=== PATIENT | female | born 1985 | race Caucasian/White ===

== ENCOUNTER → 2019-07-06 | Outpatient (CLI) | payer OTHER | END | disposition home or self-care (01) | LOC: RADCTMAIN 16:22 | PROVIDERS: ATTEND Orthopaedic Surgery Orthopaedic Trauma | DX: Z53.9 Procedure and treatment not carried out, unspecified reason (principal) ==

== ENCOUNTER 2020-03-29 09:21 | Emergency (ER) | payer OTHER ==
--- NOTE | 2020-03-29 09:54 | ED ---
General Adult HPI - General Stated complaint: psych eval Time Seen by Provider: 03/29/20 09:28 Source: patient, police, RN notes reviewed Mode of arrival: ambulatory Limitations: no limitations - History of Present Illness Initial comments: This is a 35-year-old female presents emergency Department with police for psychiatric evaluation. Patient reportedly had an argument with mother at home she became combative throwing objects. She does admit to this. She states that she is over her anger. She does not that she does have some psychiatric history has been off her Prozac over the last couple days because she ran out. Patient denies any suicidal or homicidal ideation denies any current drug or alcohol use she states that she's been sober for 6 months. Denies any self-harm no physical complaints including chest pain, shortness breath, nausea, vomiting diarrhea constipation no fevers chills. - Related Data Allergies Allergy/AdvReac Type Severity Reaction Status Date / Time No Known Allergies Allergy Verified 03/29/20 09:30 Review of Systems ROS Statement: Those systems with pertinent positive or pertinent negative responses have been documented in the HPI. ROS Other: All systems not noted in ROS Statement are negative. Past Medical History Past Medical History: No Reported History History of Any Multi-Drug Resistant Organisms: None Reported Additional Past Surgical History / Comment(s): LEEP procedure Past Psychological History: ADD/ADHD, Depression, PTSD Smoking Status: Current every day smoker Past Alcohol Use History: None Reported Past Drug Use History: None Reported General Exam Limitations: no limitations General appearance: alert, in no apparent distress, anxious Head exam: Present: atraumatic, normocephalic, normal inspection Eye exam: Present: normal appearance, PERRL, EOMI. Absent: scleral icterus, conjunctival injection, periorbital swelling ENT exam: Present: normal exam, normal oropharynx, mucous membranes moist Neck exam: Present: normal inspection, full ROM. Absent: tenderness, meningismus, lymphadenopathy Respiratory exam: Present: normal lung sounds bilaterally. Absent: respiratory distress, wheezes, rales, rhonchi, stridor Cardiovascular Exam: Present: regular rate, normal rhythm, normal heart sounds. Absent: systolic murmur, diastolic murmur, rubs, gallop, clicks Neurological exam: Present: alert, oriented X3, CN II-XII intact Skin exam: Present: warm, dry, intact, normal color. Absent: rash Course Vital Signs 03/29/20 03/29/20 09:24 10:04 Temperature 98.8 F Pulse Rate 101 H Respiratory 20 20 Rate Blood Pressure 151/92 O2 Sat by Pulse 99 Oximetry Medical Decision Making - Medical Decision Making Patient was evaluated by EPS case discussed with psychiatrist recommends outpatient treatment, continuation her medications. Safety plan in place - Lab Data Lab Results 03/29/20 Range/Units 10:00 Urine Opiates Screen Detected H (NotDetected) Ur Oxycodone Screen Not Detected (NotDetected) Urine Methadone Screen Not Detected (NotDetected) Ur Propoxyphene Screen Not Detected (NotDetected) Ur Barbiturates Screen Not Detected (NotDetected) U Tricyclic Antidepress Not Detected (NotDetected) Ur Phencyclidine Scrn Not Detected (NotDetected) Ur Amphetamines Screen Not Detected (NotDetected) U Methamphetamines Scrn Not Detected (NotDetected) U Benzodiazepines Scrn Not Detected (NotDetected) Urine Cocaine Screen Not Detected (NotDetected) U Marijuana (THC) Screen Not Detected (NotDetected) Disposition Clinical Impression: Adjustment reaction Disposition: HOME SELF-CARE Condition: Stable Instructions (If sedation given, give patient instructions): Mood Disorders (ED ) Additional Instructions: Please return to the Emergency Department if symptoms worsen or any other concerns. Is patient prescribed a controlled substance at d/c from ED?: No Referrals: Deanna Huston MD [Primary Care Provider] - 1-2 days Time of Disposition: 11:30
[2020-03-29 10:38] LABS: Amphetamine Screen,Urine Not Detected (NotDetected); Barbiturate Screen,Urine Not Detected (NotDetected); Benzodiazepines Screen,Urine Not Detected (NotDetected); Cocaine Screen,Urine Not Detected (NotDetected); Methadone Screen, Urine Not Detected (NotDetected); Opiate Screen,Urine Detected (NotDetected); Oxycodone Screen, Urine Not Detected (NotDetected); Phencyclidine Screen,Urine Not Detected (NotDetected); Tricyclic Antidepressant,Urine Not Detected (NotDetected); Urn Cannabinoid Scrn Not Detected (NotDetected)
[2020-03-29 11:42] VITALS: BP 127/76; PULSE 65; RESP 18; TEMP 97.6
== END 2020-03-29 11:42 | disposition home or self-care (01) ==
LOC: EC 09:21
DX: F43.20 Adjustment disorder, unspecified (principal); F17.200 Nicotine dependence, unspecified, uncomplicated
CPT/HCPCS: 80306; 82075; 99284

== ENCOUNTER 2021-03-21 22:33 | Emergency (ER) | payer OTHER ==
[2021-03-21 22:42] VITALS: BP 154/61; PULSE 118; RESP 22; TEMP 98.2
--- NOTE | 2021-03-21 23:05 | ED ---
Psych HPI - General Chief Complaint: Psychiatric Symptoms Stated Complaint: Mental Health Time Seen by Provider: 03/21/21 22:50 Source: patient, police, RN notes reviewed, old records reviewed Mode of arrival: ambulatory Limitations: no limitations - History of Present Illness Initial Comments: This is a 36-year-old female to the ER for evaluation patient presents today for evaluation regards to psychiatric illness. Patient's brought in under petition by PD for psychiatric evaluation and management patient does have alcohol abuse and substance abuse issues. Patient states this hopeless. Angry. MD Complaint: feels depressed -: days(s) Associated Psychiatric Symptoms: depression, racing thoughts Quality: constant Improves With: none Worsens With: none Context: recent drug abuse, significant life stressor Associated Symptoms: denies other symptoms Treatments Prior to Arrival: placed on mental health hold If Self Harm: has acted on plan - Related Data Home Medications Medication Instructions Recorded Confirmed Acetaminophen [Tylenol] 1,000 mg PO Q4-6H PRN 03/21/21 03/21/21 Cetirizine HCl 10 mg PO DAILY PRN 03/21/21 03/21/21 Dextroamphetamine/Amphetamine 10 mg PO DAILY@1400 03/21/21 03/21/21 [Adderall] Dextroamphetamine/Amphetamine 20 mg PO DAILY@0900 03/21/21 03/21/21 [Adderall] FLUoxetine HCL 40 mg PO DAILY 03/21/21 03/21/21 Ibuprofen [Motrin Ib] 600 mg PO Q8H PRN 03/21/21 03/21/21 Vitamin B-12 1,000 Gummy 1,000 mg PO DAILY 03/21/21 03/21/21 Vitamin C 1,000mg Gummy 1,000 mg PO DAILY 03/21/21 03/21/21 diphenhydrAMINE [Benadryl] 25 mg PO DAILY PRN 03/21/21 03/21/21 Allergies Allergy/AdvReac Type Severity Reaction Status Date / Time No Known Allergies Allergy Verified 03/21/21 22:43 Review of Systems ROS Statement: Those systems with pertinent positive or pertinent negative responses have been documented in the HPI. ROS Other: All systems not noted in ROS Statement are negative. Past Medical History Past Medical History: No Reported History History of Any Multi-Drug Resistant Organisms: None Reported Additional Past Surgical History / Comment(s): LEEP procedure Past Psychological History: ADD/ADHD, Depression, PTSD Smoking Status: Current every day smoker Past Alcohol Use History: Abuse, Daily, Heavy Past Drug Use History: Methamphetamine General Exam Limitations: no limitations General appearance: alert, in no apparent distress Head exam: Present: atraumatic, normocephalic, normal inspection Eye exam: Present: normal appearance, PERRL, EOMI. Absent: scleral icterus, conjunctival injection, periorbital swelling ENT exam: Present: normal exam, mucous membranes moist Neck exam: Present: normal inspection. Absent: tenderness, meningismus, lymphadenopathy Respiratory exam: Present: normal lung sounds bilaterally. Absent: respiratory distress, wheezes, rales, rhonchi, stridor Cardiovascular Exam: Present: normal rhythm, tachycardia, normal heart sounds. Absent: systolic murmur, diastolic murmur, rubs, gallop, clicks GI/Abdominal exam: Present: soft, normal bowel sounds. Absent: distended, tenderness, guarding, rebound, rigid Extremities exam: Present: normal inspection, full ROM, normal capillary refill. Absent: tenderness, pedal edema, joint swelling, calf tenderness Back exam: Present: normal inspection Neurological exam: Present: alert, oriented X3, CN II-XII intact Psychiatric exam: Present: normal affect, normal mood Skin exam: Present: warm, dry, intact, normal color. Absent: rash Course Vital Signs 03/21/21 22:39 Temperature 98.2 F Pulse Rate 118 H Respiratory 22 Rate Blood Pressure 154/61 O2 Sat by Pulse 97 Oximetry - Reevaluation(s) Reevaluation #1: 03/21/21 23:29 Medical record is reviewed Medical Decision Making - Medical Decision Making 36 female for evaluation by psychiatry, patient deemed stable for discharge home Disposition Clinical Impression: Acute anxiety, Depression Disposition: HOME SELF-CARE Condition: Fair Instructions (If sedation given, give patient instructions): Depression (ED) Is patient prescribed a controlled substance at d/c from ED?: No Referrals: Deanna Huston MD [Primary Care Provider] - 1-2 days
[2021-03-22] MEDS ORDERED: ACETAMINOPHEN TAB 325 MG TAB PO STA (01:28)
== END 2021-03-22 04:57 | disposition home or self-care (01) ==
LOC: EC 22:33
DX: F32.9 Major depressive disorder, single episode, unspecified (principal); F41.9 Anxiety disorder, unspecified; F17.200 Nicotine dependence, unspecified, uncomplicated; F90.9 Attention-deficit hyperactivity disorder, unspecified type; Z79.899 Other long term (current) drug therapy
CPT/HCPCS: 82075; 99284

== ENCOUNTER 2021-06-10 16:49 | Inpatient (IN) | payer MEDICAID, OTHER ==
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
[2021-06-10 18:52] LABS: Amphetamine Screen,Urine Not Detected (NotDetected); Barbiturate Screen,Urine Not Detected (NotDetected); Benzodiazepines Screen,Urine Not Detected (NotDetected); Cocaine Screen,Urine Not Detected (NotDetected); Methadone Screen, Urine Not Detected (NotDetected); Opiate Screen,Urine Not Detected (NotDetected); Oxycodone Screen, Urine Not Detected (NotDetected); Phencyclidine Screen,Urine Not Detected (NotDetected); Tricyclic Antidepressant,Urine Detected (NotDetected); Urn Cannabinoid Scrn Not Detected (NotDetected)
[2021-06-10] MEDS ORDERED: LORazepam 1 MG TAB PO PRN (23:40)
[2021-06-10] MEDS ORDERED: MAGNESIUM HYDROXIDE 2,400 MG/10 ML CUP PO PRN (23:40)
[2021-06-10] MEDS ORDERED: ACETAMINOPHEN TAB 325 MG TAB PO PRN (23:40)
[2021-06-10] MEDS ORDERED: MAG HYDROX/AL HYDROX/SIMETH 30 ML CUP PO PRN (23:40)
[2021-06-10] MEDS ORDERED: LORazepam 2 MG/ML INJ IM PRN (23:43)
[2021-06-10] MEDS ORDERED: HALOPERIDOL LACTATE 5 MG/ML 1 ML VIAL IM PRN (23:43)
[2021-06-11 01:09] LABS: Appearance,Urine Clear (Clear); Bilirubin,Urine Negative (Negative); Blood,Urine Negative (Negative); Color,Urine Light Yellow; Glucose,Urine (UA) Negative (Negative); Ketones,Urine 1+ (Negative); Leukocyte Esterase,Urine Negative (Negative); Nitrite,Urine Negative (Negative); PH, Urine 8.5 (5.0-8.0); Protein,Urine Negative (Negative); Specific Gravity,Urine 1.018 (1.001-1.035); Urobilinogen,Urine <2.0 mg/dL (<2.0)
[2021-06-11] MEDS: NICOTINE 14MG/24HR PATCH TRANSDERM SCH ×3 (01:50→17:23)
--- NOTE | 2021-06-11 03:54 | P.PN ---
Progress Note - Text Progress Note Date: 06/11/21 Patient sedated and could not be evaluated.
[2021-06-11 07:28] LABS: Basophils # (A) 0.1 k/uL (0-0.2); Basophils % (A) 1 %; Eosinophils # (A) 0.3 k/uL (0-0.7); Eosinophils % (A) 3 %; HCT 46.2 % (34.0-46.0); HGB 15.8 gm/dL (11.4-16.0); Lymphocytes # (A) 3.1 k/uL (1.0-4.8); Lymphocytes % (A) 34 %; MCH 31.8 pg (25.0-35.0); MCHC 34.1 g/dL (31.0-37.0); MCV 93.2 fL (80.0-100.0); Mean Platelet Volume 6.5; Monocytes # (A) 0.6 k/uL (0-1.0); Monocytes % (A) 6 %; Neutrophils # (A) 5.1 k/uL (1.3-7.7); Neutrophils % (A) 55 %; Platelet Count 477 k/uL (150-450); RBC 4.96 m/uL (3.80-5.40); RDW 11.9 % (11.5-15.5); WBC 9.2 k/uL (3.8-10.6)
[2021-06-11 07:54] LABS: ALT 16 U/L (4-34); AST 32 U/L (14-36); African American GFR (CKD) >90 (>60 ml/min/1.73 sqM); Albumin 5.1 g/dL (3.5-5.0); Alkaline Phosphatase 73 U/L (38-126); Anion Gap 11 mmol/L; Blood Urea Nitrogen 16 mg/dL (7-17); Calcium 10.3 mg/dL (8.4-10.2); Carbon Dioxide 27 mmol/L (22-30); Chloride 100 mmol/L (98-107); Glucose 103 mg/dL (74-99); Non-African American GFR(CKD) >90 (>60 ml/min/1.73 sqM); Potassium 4.2 mmol/L (3.5-5.1); Sodium 138 mmol/L (137-145); Total Bilirubin 0.6 mg/dL (0.2-1.3); Total Protein 8.3 g/dL (6.3-8.2)
[2021-06-11] MEDS: LORATADINE 10 MG TAB PO SCH (08:05)
[2021-06-11] MEDS ORDERED: QUEtiapine 25 MG TAB PO SCH ×2 (09:00→21:00)
[2021-06-11] MEDS ORDERED: FLUoxetine HCL 20 MG CAP PO SCH (09:00)
[2021-06-11] MEDS ORDERED: IBUPROFEN 600 MG TAB PO PRN (11:46)
[2021-06-11] MEDS ORDERED: FLUoxetine HCL 20 MG CAP PO STA (11:51)
[2021-06-11] MEDS ORDERED: hydrOXYzine pamoate 25 MG CAP PO PRN (11:54)
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
[2021-06-11 15:44] LABS: Chol/HDL Ratio 5.32; Cholesterol 218 mg/dL (0-200); LDL Cholesterol,Calculated 124.6 mg/dL (0.0-131.0)
[2021-06-12] MEDS: NICOTINE 14MG/24HR PATCH TRANSDERM SCH ×2 (08:22→12:38)
[2021-06-12] MEDS: LORATADINE 10 MG TAB PO SCH (08:22)
[2021-06-12] MEDS: FLUoxetine HCL 20 MG CAP PO SCH (08:22)
[2021-06-12] MEDS ORDERED: QUEtiapine 25 MG TAB PO PRN (09:59)
--- NOTE | 2021-06-12 10:14 | P.PN ---
Progress Note - Text Progress Note Date: 06/12/21 Interval History: Patient was seen lying in her bed this morning and was directable and agreeable to speak with travel writer in the office. Patient was more directable today during conversation. She appeared to be more cooperative however had a fairly constricted affect. She states that she is doing better overall in terms of her anxiety and depression. She states that she is not feeling suicidal any longer. She claims that she spoke with her boyfriend over the phone yesterday however was vague about their conversation. She states that she has not conned many groups because "I don't know when they are". Marketing Technology Specialist spoke with patient about the different group options during the day and she states that she will be going to them today. States that her appetite is fair. She states that she was able to sleep fairly last night her feel somewhat tired this morning. She was agreeable to have her Seroquel changed to prn dosing at night time and was agreeable to try Remeron instead for sleep. At this time patient denies any suicidal or homical ideations, intent or plan. Patient denies any auditory, visual hallucinations and denies any paranoia or delusions. Patient denies any side effects from the medications and has been compliant with meds. Mental Status Exam: General Appearance: Patient appears to be short in stature, thin, stated age is alert, more directable today. Patient appears to have improving hygiene and grooming. Behavior: Patient is seated without any agitated behavior. Withdrawn, improving midly Speech: Patient's speech is fluent and nonpressured. Mood/Affect: Patient reports their mood is improving mildly, affect is congruent and constricted. Suicidality/Homicidality: Patient denies having any homicidal ideation intent or plan. Denies any suicidal ideations intent or plan Perceptions: Patient denies any visual hallucinations and denies any auditory h allucinations Though content/process: There is no evidence of any delusional thought content and thought process is linear and goal-directed. Memory and concentration: AOX3, grossly intact for the purposes of this session. Judgment and insight: improving mildly Assessment Major depressive disorder, without psychotic features Anxiety disorder unspecified Alcohol abuse Nicotine dependence Plan: -Patient continues to meet criteria for inpatient psychiatric admission for symptom stabilization and safety. Patient has signed adult voluntary form and medication consent and was placed in patient's chart. -Medications: Continue Prozac 60 mg daily for mood/anxiety. Changed Seroquel to 25 mg daily at bedtime prn for insomnia. Added Remeron 15 mg daily at bedtime for insomnia/mood. Vistaril 25 mg every 6 hours when necessary for anxiety. -CIWA protocol with Ativan PRN for ETOH withdrawal -When necessary Ativan and Haldol for agitation/aggression. -NRT - nicotine patch -SW on board for discharge planning. Encouraged the patient to participate in milieu. ax survey worker to reach out to patient's friend who she wants to stay with Randall at [phone] to arrange for possible d/c planning for tomorrow. She is refusing rehab at this time.
[2021-06-12] MEDS ORDERED: MIRTAZAPINE 15 MG TAB PO SCH (21:00)
--- NOTE | 2021-06-13 00:37 | P.MDCNMH ---
History of Present Illness H&P Date: 06/12/21 Chief Complaint: depression and suicidal ideation 36-year-old female with depression Patient comes in due to depression and suicidal ideation she was petitioned for psych eval here in the hospital Patient currently denies any medical concerns she denies any fevers or chills denies any upper respiratory infection symptoms denies any nausea vomiting abdominal pain She does admit smoking but denies any drug abuse or alcohol abuse She currently denies hearing any voices or any other hallucinations he denies any suicidal ideation Review of Systems Pertinent positives as noted in HPI. All other systems were reviewed and are negative Past Medical History Past Medical History: No Reported History History of Any Multi-Drug Resistant Organisms: None Reported Additional Past Surgical History / Comment(s): LEEP procedure Past Psychological History: ADD/ADHD, Depression, PTSD Smoking Status: Current every day smoker Past Alcohol Use History: Abuse, Daily, Heavy Past Drug Use History: Methamphetamine - Past Family History Family Family Medical History: No Reported History Medications and Allergies Home Medications Medication Instructions Recorded Confirmed Type Cetirizine HCl 10 mg PO DAILY 03/21/21 06/11/21 History Dextroamphetamine/Amphetamine 10 mg PO DAILY@1400 03/21/21 06/11/21 History [Adderall] Dextroamphetamine/Amphetamine 20 mg PO DAILY@0900 03/21/21 06/11/21 History [Adderall] FLUoxetine HCL 40 mg PO DAILY 03/21/21 06/11/21 History QUEtiapine FUMARATE [SEROquel XR] 50 mg PO HS 06/10/21 06/11/21 History Allergies Allergy/AdvReac Type Severity Reaction Status Date / Time No Known Allergies Allergy Verified 06/11/21 00:52 Physical Exam Constitutional: No acute distress, conversant, pleasant Eyes: Anicteric sclerae, moist conjunctiva, Pupils equal round reactive to light ENMT: NC/AT Oropharynx clear, no erythema, or exudates Neck: Supple, FROM, no masses, or JVD No carotid bruits No thyromegaly Lungs: Clear to auscultation Clear to percussion Normal respiratory effort, no accessory muscle use Cardiovascular: Heart regular in rate and rhythm, No murmurs, gallops, or rubs No peripheral edema Abdominal: Soft Nontender, no guarding, rebound or rigidity Abdomen moving with respiration Normoactive bowel sounds No hepatomegaly, No splenomegaly No palpable mass No abdominal wall hernia noted Skin: Normal temperature, tone, texture, turgor No induration No subcutaneous nodules No rash, lesions No ulcers Extremities: No digital cyanosis No clubbing Pedal pulses intact and symmetrical Radial pulses intact and symmetrical No calf tenderness Psychiatric: Alert and oriented to person, place and time Appropriate affect fair judgement Neuro Muscles Strength 5/5 in all 4 extremities Sensation to light touch grossly present throughout Cranial nerves II-XII grossly intact No focal sensory deficits Lymphatics: no palpable cervical or supraclavicular , or inguinal lymph nodes Cranial Nerve Examination - Cranial Nerves Cranial Nerve II- Optic: Intact Cranial Nerve III- Oculomotor: Intact Cranial Nerve IV- Trochlear: Intact Cranial Nerve V- Trigeminal: Intact Cranial Nerve - Abducens: Intact Cranial Nerve VII- Facial: Intact Cranial Nerve VIII- Auditory: Intact Cranial Nerve IX- Glossopharyngeal: Intact Cranial Nerve X- Vagus: Intact Cranial Nerve XI- Accessory: Intact Cranial Nerve XII- Hypoglossal: Intact Results CBC & Chem 7: 06/11/21 06:54 06/11/21 06:54 Assessment and Plan Assessment: Depression and suicidal ideation Management per psych Tobacco smoking Nicotine replacement therapy offered Patient counseled to quit smoking Thank you for allowing us to participate in the care of this patient. We will follow peripherally. Do not hesitate to contact us with questions. Someone can be reached from the [facility] hospitalist group at all hours of the day at [phone].
[2021-06-13 06:50] VITALS: BP 121/85; PULSE 69; RESP 14; TEMP 97.4
[2021-06-13] MEDS: FLUoxetine HCL 20 MG CAP PO SCH (08:17)
[2021-06-13] MEDS: NICOTINE 14MG/24HR PATCH TRANSDERM SCH (08:17)
[2021-06-13] MEDS: LORATADINE 10 MG TAB PO SCH (08:17)
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
[2021-06-14 04:35] LABS: Hemoglobin A1C 5.5 % (4.0-6.0)
== END 2021-06-13 14:05 | disposition home or self-care (01) | DRG 918 ==
LOC: EC 16:49 → 3MHU 23:08
PROVIDERS: ADMIT Psychiatry & Neurology Psychiatry; ATTEND Psychiatry & Neurology Psychiatry
PROC: HZ2ZZZZ Detoxification Services for Substance Abuse Treatment (ICD-10-PCS; principal; 2021-06-10)
DX: T43.222A Poisoning by selective serotonin reuptake inhibitors, intentional self-harm, initial encounter (principal); R45.851 Suicidal ideations; F19.20 Other psychoactive substance dependence, uncomplicated; F15.20 Other stimulant dependence, uncomplicated; F10.10 Alcohol abuse, uncomplicated; F32.9 Major depressive disorder, single episode, unspecified; F12.20 Cannabis dependence, uncomplicated; F17.210 Nicotine dependence, cigarettes, uncomplicated; F43.10 Post-traumatic stress disorder, unspecified; G47.00 Insomnia, unspecified; F90.9 Attention-deficit hyperactivity disorder, unspecified type; Z71.6 Tobacco abuse counseling; Z79.899 Other long term (current) drug therapy; X58.XXXA Exposure to other specified factors, initial encounter; Z71.51 Drug abuse counseling and surveillance of drug abuser
CPT/HCPCS: 80053; 80061; 80306; 81003; 81025; 82075; 83036; 84443; 85025; 99285

== ENCOUNTER 2021-06-28 21:49 | Inpatient (IN) | payer MEDICAID, OTHER ==
[2021-06-28] MEDS ORDERED: NICOTINE 14MG/24HR PATCH TRANSDERM STA (22:04)
--- NOTE | 2021-06-28 22:07 | ED ---
Psych HPI - General Chief Complaint: Psychiatric Symptoms Stated Complaint: Mental Health Time Seen by Provider: 06/28/21 21:55 Source: patient Mode of arrival: ambulatory - History of Present Illness MD Complaint: feels depressed -: days(s) Associated Psychiatric Symptoms: depression, suicidal ideation History of same: Yes Quality: getting worse Improves With: none Worsens With: none Associated Symptoms: denies other symptoms - Related Data Home Medications Medication Instructions Recorded Confirmed Cetirizine HCl 10 mg PO DAILY 03/21/21 06/11/21 Dextroamphetamine/Amphetamine 10 mg PO DAILY@1400 03/21/21 06/11/21 [Adderall] Dextroamphetamine/Amphetamine 20 mg PO DAILY@0900 03/21/21 06/11/21 [Adderall] Previous Rx's Medication Instructions Recorded Acetaminophen Tab [Tylenol] 650 mg PO Q4HR PRN tab 06/13/21 FLUoxetine HCL [PROzac] 60 mg PO DAILY 30 Days cap 06/13/21 Ibuprofen [Motrin] 600 mg PO Q8H PRN tab 06/13/21 Mirtazapine [Remeron] 15 mg PO HS 30 Days tab 06/13/21 Nicotine 14Mg/24Hr Patch [Habitrol] 1 patch TRANSDERM DAILY 14 Days 06/13/21 patch QUEtiapine [SEROquel] 25 mg PO HS PRN 30 Days tab 06/13/21 Allergies Allergy/AdvReac Type Severity Reaction Status Date / Time No Known Allergies Allergy Verified 06/28/21 21:52 Review of Systems ROS Statement: Those systems with pertinent positive or pertinent negative responses have been documented in the HPI. ROS Other: All systems not noted in ROS Statement are negative. Constitutional: Denies: fever, chills Respiratory: Denies: cough, dyspnea Cardiovascular: Denies: chest pain, palpitations Gastrointestinal: Denies: abdominal pain, vomiting, diarrhea Musculoskeletal: Denies: back pain Skin: Denies: rash Neurological: Denies: headache Psychiatric: Reports: depression, suicidal thoughts. Denies: auditory hallucinations, visual hallucinations, homicidal thoughts Past Medical History Past Medical History: No Reported History History of Any Multi-Drug Resistant Organisms: None Reported Additional Past Surgical History / Comment(s): LEEP procedure Past Psychological History: ADD/ADHD, Depression, PTSD Smoking Status: Current every day smoker Past Alcohol Use History: Abuse, Daily, Heavy Past Drug Use History: Methamphetamine - Past Family History Family Family Medical History: No Reported History General Exam Limitations: no limitations General appearance: alert, in no apparent distress Head exam: Present: atraumatic, normocephalic Eye exam: Present: normal appearance. Absent: scleral icterus, conjunctival injection Respiratory exam: Present: normal lung sounds bilaterally. Absent: respiratory distress, wheezes, rales, rhonchi, stridor Cardiovascular Exam: Present: regular rate, normal rhythm, normal heart sounds. Absent: systolic murmur, diastolic murmur, rubs, gallop Extremities exam: Present: normal inspection, normal capillary refill. Absent: pedal edema, calf tenderness Neurological exam: Present: alert Psychiatric exam: Present: depressed. Absent: agitated, anxious, flat affect, manic, homicidal ideation, suicidal ideation Skin exam: Present: warm, dry, intact, normal color. Absent: rash Course Vital Signs 06/28/21 21:50 Temperature 98.2 F Pulse Rate 90 Respiratory 18 Rate Blood Pressure 145/73 O2 Sat by Pulse 98 Oximetry Medical Decision Making - Lab Data Lab Results 06/28/21 06/28/21 Range/Units 23:22 23:24 Urine Color Yellow Urine Appearance Cloudy H (Clear) Urine pH 6.0 (5.0-8.0) Ur Specific [place] 1.038 H (1.001-1.035) Urine Protein Trace H (Negative) Urine Glucose (UA) Negative (Negative) Urine Ketones 1+ H (Negative) Urine Blood Negative (Negative) Urine Nitrite Negative (Negative) Urine Bilirubin Negative (Negative) Urine Urobilinogen 4.0 (<2.0) mg/dL Ur Leukocyte Esterase Small H (Negative) Urine RBC 1 (0-5) /hpf Urine WBC 5 (0-5) /hpf Ur Squamous Epith Cells 5 H (0-4) /hpf Calcium Oxalate Crystal Many H (None) /hpf Urine Bacteria Rare H (None) /hpf Urine Mucus Few H (None) /hpf Urine HCG, Qual Not Detected (Not Detectd) Urine Opiates Screen Detected H (NotDetected) Ur Oxycodone Screen Detected H (NotDetected) Urine Methadone Screen Not Detected (NotDetected) Ur Propoxyphene Screen Not Detected (NotDetected) Ur Barbiturates Screen Not Detected (NotDetected) U Tricyclic Antidepress Not Detected (NotDetected) Ur Phencyclidine Scrn Not Detected (NotDetected) Ur Amphetamines Screen Detected H (NotDetected) U Methamphetamines Scrn Not Detected (NotDetected) U Benzodiazepines Scrn Detected H (NotDetected) Urine Cocaine Screen Not Detected (NotDetected) U Marijuana (THC) Screen Not Detected (NotDetected) Disposition Clinical Impression: Mood disorder Disposition: ADMITTED IP TO THIS [facility] Condition: Fair Is patient prescribed a controlled substance at d/c from ED?: No
[2021-06-29 00:10] LABS: Appearance,Urine Cloudy (Clear); Bacteria,Urine Rare /hpf; Bilirubin,Urine Negative (Negative); Blood,Urine Negative (Negative); Calcium Oxalate Crystals,Urine Many /hpf; Color,Urine Yellow; Glucose,Urine (UA) Negative (Negative); Ketones,Urine 1+ (Negative); Leukocyte Esterase,Urine Small (Negative); Mucus,Urine Few /hpf; Nitrite,Urine Negative (Negative); Protein,Urine Trace (Negative); RBC,Urine 1 /hpf (0-5); Specific Gravity,Urine 1.038 (1.001-1.035); Squamous Epithelial Cell,Urine 5 /hpf (0-4); WBC,Urine 5 /hpf (0-5)
[2021-06-29 00:11] LABS: Amphetamine Screen,Urine Detected (NotDetected); Barbiturate Screen,Urine Not Detected (NotDetected); Benzodiazepines Screen,Urine Detected (NotDetected); Cocaine Screen,Urine Not Detected (NotDetected); Methadone Screen, Urine Not Detected (NotDetected); Opiate Screen,Urine Detected (NotDetected); Oxycodone Screen, Urine Detected (NotDetected); Phencyclidine Screen,Urine Not Detected (NotDetected); Tricyclic Antidepressant,Urine Not Detected (NotDetected); Urn Cannabinoid Scrn Not Detected (NotDetected)
[2021-06-29] MEDS ORDERED: MAGNESIUM HYDROXIDE 2,400 MG/10 ML CUP PO PRN (02:26)
[2021-06-29] MEDS ORDERED: ACETAMINOPHEN TAB 325 MG TAB PO PRN (02:26)
[2021-06-29] MEDS ORDERED: MAG HYDROX/AL HYDROX/SIMETH 30 ML CUP PO PRN (02:26)
[2021-06-29] MEDS ORDERED: LORazepam 2 MG/ML INJ IM PRN (02:31)
[2021-06-29] MEDS ORDERED: haloperidoL 5 MG TAB PO PRN (02:32)
[2021-06-29] MEDS ORDERED: HALOPERIDOL LACTATE 5 MG/ML 1 ML VIAL IM PRN (02:32)
[2021-06-29 08:09] LABS: Basophils # (A) 0.1 k/uL (0-0.2); Basophils % (A) 1 %; Eosinophils # (A) 0.4 k/uL (0-0.7); Eosinophils % (A) 3 %; HCT 39.9 % (34.0-46.0); HGB 13.5 gm/dL (11.4-16.0); Lymphocytes # (A) 3.2 k/uL (1.0-4.8); Lymphocytes % (A) 31 %; MCH 33.3 pg (25.0-35.0); MCHC 33.8 g/dL (31.0-37.0); Mean Platelet Volume 6.4; Monocytes # (A) 0.4 k/uL (0-1.0); Monocytes % (A) 4 %; Neutrophils # (A) 6.1 k/uL (1.3-7.7); Neutrophils % (A) 59 %; Platelet Count 430 k/uL (150-450); RBC 4.05 m/uL (3.80-5.40); RDW 13.6 % (11.5-15.5); WBC 10.3 k/uL (3.8-10.6)
[2021-06-29 08:11] LABS: MCV 98.5 fL (80.0-100.0)
[2021-06-29 08:12] LABS: ALT 10 U/L (4-34); AST 22 U/L (14-36); African American GFR (CKD) >90 (>60 ml/min/1.73 sqM); Albumin 3.5 g/dL (3.5-5.0); Alkaline Phosphatase 66 U/L (38-126); Anion Gap 5 mmol/L; Blood Urea Nitrogen 16 mg/dL (7-17); Calcium 8.9 mg/dL (8.4-10.2); Carbon Dioxide 28 mmol/L (22-30); Chloride 104 mmol/L (98-107); Glucose 92 mg/dL (74-99); Non-African American GFR(CKD) >90 (>60 ml/min/1.73 sqM); Potassium 4.5 mmol/L (3.5-5.1); Sodium 137 mmol/L (137-145); Total Bilirubin <0.1 mg/dL (0.2-1.3); Total Protein 6.1 g/dL (6.3-8.2)
[2021-06-29] MEDS: NICOTINE 14MG/24HR PATCH TRANSDERM SCH (08:36)
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
[2021-06-29] MEDS: FLUoxetine HCL 20 MG CAP PO SCH (12:19)
[2021-06-29 14:16] LABS: Hemoglobin A1C 5.5 % (4.0-6.0)
[2021-06-29] MEDS: LORazepam 1 MG TAB PO PRN (19:49)
[2021-06-29] MEDS: MIRTAZAPINE 15 MG TAB PO SCH (20:38)
--- NOTE | 2021-06-30 01:25 | P.CONS ---
History of Present Illness - Reason for Consult Consult date: 06/30/21 - History of Present Illness The patient was seen with the mental health unit RN Amna. I was never alone with the patient. Patient is a 36-year-old female with a PMH of tobacco abuse who presented to the emergency room with complaints of depression and suicidal ideation. The patient was admitted to the mental health unit where she was seen and evaluated. The patient notes that she does not wish to talk about the exact reasons as to why she came into the emergency room. She however denied any physical complaints. She denied chest discomfort, shortness of breath, fever, chills, cough, nausea, vomiting. Patient reports smoking 1 pack of cigarettes daily for the past several years and is hoping to quit and is currently using a nicotine patch. She denied substance or alcohol use. Review of systems: Pertinent positives and negatives as discussed in HPI, a complete review of systems was performed and all other systems are negative. Physical examination: General: non toxic, no distress, appears at stated age, normal weight Derm: no unusual rashes/lesions no unusual ecchymoses, warm, dry Head: atraumatic, normocephalic, symmetric Eyes: EOMI, no lid lag, anicteric sclera, pupils equal round reactive to light ENT: Nose and ears atraumatic, no thrush, no pharyngeal erythema Neck: No thyromegaly, no cervical lymphadenopathy, trachea midline, supple Mouth: no lip lesion, mucus membranes moist Cardiovascular: S1S2 reg, no murmur, positive posterior tibial pulse bilateral, no edema, capillary refill less than 2 seconds Lungs: CTA bilateral, no rhonchi, no rales , no accessory muscle use Abdominal: soft, nontender to palpation, no guarding, no appreciable organomegaly, normal bowel sounds Ext: no gross muscle atrophy, muscle strength 5 out of 5 in all 4 extremities grossly, no contractures, Neuro: CN II-XI grossly intact, light touch intact all 4 extremities, finger to nose within normal limits, Psych: Alert, oriented, guarded affect Assessment/plan Tobacco abuse -Nicotine patch as needed Depression and suicidal ideation -As per psychiatry Thank you for allowing us to participate in the care of this patient. We will follow peripherally. Do not hesitate to contact us with questions. Someone can be reached from the [facility] hospitalist group at all hours of the day a t [phone]. Past Medical History Past Medical History: No Reported History History of Any Multi-Drug Resistant Organisms: None Reported Additional Past Surgical History / Comment(s): LEEP procedure Smoking Status: Current every day smoker - Past Family History Family Family Medical History: No Reported History Mother Family Medical History: Cancer Medications and Allergies Home Medications Medication Instructions Recorded Confirmed Type Cetirizine HCl 10 mg PO DAILY 03/21/21 06/29/21 History Dextroamphetamine/Amphetamine 10 mg PO DAILY@1400 03/21/21 06/29/21 History [Adderall] Dextroamphetamine/Amphetamine 20 mg PO DAILY@0900 03/21/21 06/29/21 History [Adderall] Acetaminophen Tab [Tylenol] 650 mg PO Q4HR PRN tab 06/13/21 06/29/21 Rx FLUoxetine HCL [PROzac] 60 mg PO DAILY 30 Days cap 06/13/21 06/29/21 Rx Ibuprofen [Motrin] 600 mg PO Q8H PRN tab 06/13/21 06/29/21 Rx Mirtazapine [Remeron] 15 mg PO HS 30 Days tab 06/13/21 06/29/21 Rx Nicotine 14Mg/24Hr Patch [Habitrol] 1 patch TRANSDERM DAILY 14 Days 06/13/21 06/29/21 Rx patch QUEtiapine [SEROquel] 25 mg PO HS PRN 30 Days tab 06/13/21 06/29/21 Rx Allergies Allergy/AdvReac Type Severity Reaction Status Date / Time No Known Allergies Allergy Verified 06/29/21 03:03 Physical Exam Vitals: Vital Signs Temp Pulse Resp BP 06/29/21 01:31 97.7 F 79 15 132/81 Results CBC & Chem 7: 06/29/21 07:13 06/29/21 07:13 Labs: Abnormal Lab Results - Last 24 Hours (Table) 06/29/21 Range/Units 07:13 Creatinine 0.49 L (0.52-1.04) mg/dL Total Bilirubin <0.1 L (0.2-1.3) mg/dL Total Protein 6.1 L (6.3-8.2) g/dL
[2021-06-30 07:05] VITALS: TEMP 97.5
[2021-06-30] MEDS: NICOTINE 14MG/24HR PATCH TRANSDERM SCH (08:23)
[2021-06-30] MEDS: FLUoxetine HCL 20 MG CAP PO SCH (08:23)
[2021-06-30] MEDS ORDERED: QUEtiapine 25 MG TAB PO PRN (10:21)
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
[2021-06-30] MEDS: LORazepam 1 MG TAB PO PRN ×2 (10:49→18:08)
[2021-06-30] MEDS: MIRTAZAPINE 15 MG TAB PO SCH (20:40)
[2021-07-01 07:01] VITALS: BP 141/84; PULSE 64; RESP 18
[2021-07-01] MEDS: NICOTINE 14MG/24HR PATCH TRANSDERM SCH (07:50)
[2021-07-01] MEDS: FLUoxetine HCL 20 MG CAP PO SCH (07:51)
[2021-07-01] MEDS: LORazepam 1 MG TAB PO PRN (08:22)
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
--- NOTE | 2021-07-01 10:29 | P.DS ---
Providers Date of admission: 06/29/21 01:12 Expected date of discharge: 07/01/21 Attending physician: Brandon Lou MD Consults: 06/29/21 02:26 Consult Physician Routine Consulting Provider: Mart Wynne Consult Reason/Comments: For H & P for Medical Follow Up Do you want consulting provider notified?: Yes Primary care physician: Denana Huston MD - Discharge Diagnosis(es) (1) Major depressive disorder, recurrent severe without psychotic features Current Visit: Yes Status: Acute Priority: High (2) Anxiety disorder, unspecified Current Visit: Yes Status: Acute Priority: Medium (3) Alcohol use disorder Current Visit: Yes Status: Acute Priority: Medium (4) Opioid abuse Current Visit: Yes Status: Acute Priority: Medium (5) Nicotine dependence Current Visit: Yes Status: Acute Priority: Low Hospital Course: Admission HPI: Admission note was completed by Dr. Beckwith "Patient is a 36-year-old single female. She is the mother of 2 children that are being cared for by their father. She says she has a GED and currently she is unemployed. Patient presented to the hospital with suicidal ideations. She was admitted on a voluntary basis due to having suicidal ideations without a plan. It should be noted the patient was here in this facility from 06/10/2021 to 06/13/2021. That admission precipitated by worsening depression with suicidal ideations. The patient was diagnosed with major depressive disorder, anxiety disorder and alcohol use disorder she was discharged on Prozac 60 mg daily, Remeron 15 mg nightly and Seroquel 25 mg as needed. Patient states that she kept her appointment with her therapist after she was discharged. She states her family physician kept her on the same medications. Patient states after she was discharged from the hospital she stayed with a male friend. She states on she decided to leave and stayed at a motel because she felt her friend was taken advantage of her. Patient said she forgot to take her medications with her ( Prozac, Remeron and seroquel). Patient states on 06/26/2021 she had 1 pint of alcohol. Patient states yesterday she told her fianc she began to feel depressed and was having thoughts of suicide. She states she and her fianc thought it would be better if she would come back to this hospital. Should be noted her urine drug screen was positive for opiates, oxycodone, methamphetamines and benzodiazepines. Patient states that she was prescribed Adderall for having ADHD. Patient states she had alcohol only 1 time after she left this hospital. She states she has had multiple suicide attempts in the past by taking an overdose or cutting self. Patient denies any auditory or visual hallucinations. Patient denies any flight of ideas racing thoughts and increased in goal directed behavior." Hospital course: Upon admission to the unit patient was initially depressed and suicidal. Patient was however directable and agreeable to commence treatment and signed adult voluntary form. Patient got along well with other patients on the unit and followed unit protocol. Patient mainly isolated in her room during her hospitalization. Patient was compliant with the medications and denied any side effects throughout hospital course. Patient was started on Remeron 15 mg daily at bedtime for mood/insomnia, Prozac 60 mg daily for mood/anxiety, Seroquel 25 mg twice a day when necessary for anxiety/insomnia. Patient was placed on ciwa protocol and given prn ativan for w/d sx. Patient spoke of her stressors and engaged in therapy both group and individual. Patient was also seen by medical team for history and physical exam. Throughout the course of the hosp italization patient gradually improved with regards to mood, anxiety, withdrawal sxs, sleep and became more future oriented with improved insight and judgment. On the day of discharge patient denied any suicidal or homicidal ideations intent or plan denied any auditory or visual hallucinations. Patient endorsed wanting to live for his health and family. The patient denied any access to guns or weapons. Patient denied any paranoia and did not endorse any delusions. Patient does have a significant history of substance abuse and was counseled on abstaining from all substances including alcohol and marijuana. Patient was offered however declined inpatient substance-abuse rehab. Patient elected to do outpatient substance use treatment program through [facility] and also wanted to do AA/NA meetings in the community instead. Patient was also counseled on the medications and need for regular compliance and was encouraged to follow-up with their outpatient appointment for mental health and also for primary care. Prior to discharge a family meeting will be arranged by licensed master social worker to answer any questions and ensure safety upon discharge. Mental status exam: General Appearance: Patient appears to be thin, stated age is alert, pleasant, and cooperative. Patient is in no acute distress and has improved hygiene and grooming Behavior: Patient is calmly seated without any agitated behavior. Speech: Patient's speech is fluent and nonpressured. Mood/Affect: Patient reports their mood is "good", affect is congruent Suicidality/Homicidality: Patient denies having any suicidal or homicidal id eation intent or plan. Perceptions: Patient denies any auditory or visual hallucinations. Though content/process: There is no evidence of any delusional thought content and thought process is linear and goal-directed. more future oriented Memory and concentration: AOX3, grossly intact for the purposes of this session. Can spell "WORLD" backwards correctly. Judgment and insight: chronically poor, however has improved with guarded prognosis Impression: Major depressive disorder, recurrent, severe without psychotic features Anxiety disorder unspecified Alcohol use disorder Opioid abuse Nicotine dependence Plan: -Continue with discharge today as patient has improved and stabilized psychiatrically and is not currently an imminent threat to herself and/or others. Patient will remain at chronically elevated risk for harm to self and/or others due to her impulsivity and polysubstance abuse. -Continue medications: Remeron 15 mg daily at bedtime for insomnia/mood/appetite, Prozac 60 mg daily for mood/anxiety, Seroquel 25 mg twice a day when necessary for anxiety/insomnia. -Patient was counseled on the need for medication compliance and appropriate follow-up at mental health and also primary care for medical issues. Patient verbalized understanding and agreed. -Social work to arrange for and conduct family meeting to ensure safety upon discharge and answer any questions/concerns. Social work also to arrange for patients follow up appointments with [facility] for psychiatric care along with follow up with primary care provider. -Patient counseled on abstaining from recreational drugs and marijuana and alcohol. Was informed/educated on the adverse effects on their physical and mental health. Patient verbally agreed and understood. Patient was offered substance abuse treatment however declined at this time. Patient also declined any medications for etoh use/cravings -Patient was instructed to return to the hospital or seek immediate medical care if their psychiatric or medical symptoms do worsen or reoccur. Allergies Allergy/AdvReac Type Severity Reaction Status Date / Time No Known Allergies Allergy Verified 06/29/21 03:03 Laboratory Results WBC 10.3 k/uL (3.8-10.6) 06/29/21 07:13 RBC 4.05 m/uL (3.80-5.40) 06/29/21 07:13 Hgb 13.5 gm/dL (11.4-16.0) 06/29/21 07:13 Hct 39.9 % (34.0-46.0) 06/29/21 07:13 MCV 98.5 fL (80.0-100.0) D 06/29/21 07:13 MCH 33.3 pg (25.0-35.0) 06/29/21 07:13 MCHC 33.8 g/dL (31.0-37.0) 06/29/21 07:13 RDW 13.6 % (11.5-15.5) 06/29/21 07:13 Plt Count 430 k/uL (150-450) 06/29/21 07:13 MPV 6.4 06/29/21 07:13 Neutrophils % 59 % 06/29/21 07:13 Lymphocytes % 31 % 06/29/21 07:13 Monocytes % 4 % 06/29/21 07:13 Eosinophils % 3 % 06/29/21 07:13 Basophils % 1 % 06/29/21 07:13 Neutrophils # 6.1 k/uL (1.3-7.7) 06/29/21 07:13 Lymphocytes # 3.2 k/uL (1.0-4.8) 06/29/21 07:13 Monocytes # 0.4 k/uL (0-1.0) 06/29/21 07:13 Eosinophils # 0.4 k/uL (0-0.7) 06/29/21 07:13 Basophils # 0.1 k/uL (0-0.2) 06/29/21 07:13 Sodium 137 mmol/L (137-145) 06/29/21 07:13 Potassium 4.5 mmol/L (3.5-5.1) 06/29/21 07:13 Chloride 104 mmol/L (98-107) 06/29/21 07:13 Carbon Dioxide 28 mmol/L (22-30) 06/29/21 07:13 Anion Gap 5 mmol/L 06/29/21 07:13 BUN 16 mg/dL (7-17) 06/29/21 07:13 Creatinine 0.49 mg/dL (0.52-1.04) L 06/29/21 07:13 Est GFR (CKD-EPI)AfAm >90 (>60 ml/min/1.73 sqM) 06/29/21 07:13 Est GFR (CKD-EPI)NonAf >90 (>60 ml/min/1.73 sqM) 06/29/21 07:13 Glucose 92 mg/dL (74-99) 06/29/21 07:[address] Glu mg/dL 111 06/29/21 07:13 Hemoglobin A1c 5.5 % (4.0-6.0) 06/29/21 07:13 Calcium 8.9 mg/dL (8.4-10.2) 06/29/21 07:13 Total Bilirubin <0.1 mg/dL (0.2-1.3) L 06/29/21 07:13 AST 22 U/L (14-36) 06/29/21 07:13 ALT 10 U/L (4-34) 06/29/21 07:13 Alkaline Phosphatase 66 U/L (38-126) 06/29/21 07:13 Total Protein 6.1 g/dL (6.3-8.2) L 06/29/21 07:13 Albumin 3.5 g/dL (3.5-5.0) 06/29/21 07:13 TSH 2.030 mIU/L (0.465-4.680) 06/29/21 07:13 Urine Color Yellow 06/28/21 23:22 Urine Appearance Cloudy (Clear) H 06/28/21 23:22 Urine pH 6.0 (5.0-8.0) 06/28/21 23:22 Ur Specific [place] 1.038 (1.001-1.035) H 06/28/21 23:22 Urine Protein Trace (Negative) H 06/28/21 23:22 Urine Glucose (UA) Negative (Negative) 06/28/21 23:22 Urine Ketones 1+ (Negative) H 06/28/21 23:22 Urine Blood Negative (Negative) 06/28/21 23:22 Urine Nitrite Negative (Negative) 06/28/21 23:22 Urine Bilirubin Negative (Negative) 06/28/21 23:22 Urine Urobilinogen 4.0 mg/dL (<2.0) 06/28/21 23:22 Ur Leukocyte Esterase Small (Negative) H 06/28/21 23:22 Urine RBC 1 /hpf (0-5) 06/28/21 23:22 Urine WBC 5 /hpf (0-5) 06/28/21 23:22 Ur Squamous Epith Cells 5 /hpf (0-4) H 06/28/21 23:22 Calcium Oxalate Crystal Many /hpf (None) H 06/28/21 23:22 Urine Bacteria Rare /hpf (None) H 06/28/21 23:22 Urine Mucus Few /hpf (None) H 06/28/21 23:22 Urine HCG, Qual Not Detected (Not Detectd) 06/28/21 23:24 Urine Opiates Screen Detected (NotDetected) H 06/28/21 23:22 Ur Oxycodone Screen Detected (NotDetected) H 06/28/21 23:22 Urine Methadone Screen Not Detected (NotDetected) 06/28/21 23:22 Ur Propoxyphene Screen Not Detected (NotDetected) 06/28/21 23:22 Ur Barbiturates Screen Not Detected (NotDetected) 06/28/21 23:22 U Tricyclic Antidepress Not Detected (NotDetected) 06/28/21 23:22 Ur Phencyclidine Scrn Not Detected (NotDetected) 06/28/21 23:22 Ur Amphetamines Screen Detected (NotDetected) H 06/28/21 23:22 U Methamphetamines Scrn Not Detected (NotDetected) 06/28/21 23:22 U Benzodiazepines Scrn Detected (NotDetected) H 06/28/21 23:22 Urine Cocaine Screen Not Detected (NotDetected) 06/28/21 23:22 U Marijuana (THC) Screen Not Detected (NotDetected) 06/28/21 23:22 Vital Signs Temp 97.5 F L 07/01/21 07:00 Pulse 64 07/01/21 07:00 Resp 18 07/01/21 07:00 BP 141/84 07/01/21 07:00 Pulse Ox 97 06/29/21 01:19 Patient Condition at Discharge: Stable Plan - Discharge Summary New Discharge Prescriptions: New QUEtiapine [SEROquel] 25 mg PO BID PRN 30 Days tab PRN Reason: Insomnia Nicotine 14Mg/24Hr Patch [Habitrol] 1 patch TRANSDERM DAILY 14 Days patch FLUoxetine HCL [PROzac] 60 mg PO DAILY 30 Days cap Mirtazapine [Remeron] 15 mg PO HS 30 Days tab Acetaminophen Tab [Tylenol] 650 mg PO Q4HR PRN tab PRN Reason: Pain/Discomfort Discontinued Dextroamphetamine/Amphetamine [Adderall] 20 mg PO DAILY@0900 Cetirizine HCl 10 mg PO DAILY Ibuprofen [Motrin] 600 mg PO Q8H PRN tab PRN Reason: Moderate To Severe Pain FLUoxetine HCL [PROzac] 60 mg PO DAILY 30 Days cap Mirtazapine [Remeron] 15 mg PO HS 30 Days tab QUEtiapine [SEROquel] 25 mg PO HS PRN 30 Days tab PRN Reason: Insomnia Dextroamphetamine/Amphetamine [Adderall] 10 mg PO DAILY@1400 Nicotine 14Mg/24Hr Patch [Habitrol] 1 patch TRANSDERM DAILY 14 Days patch Acetaminophen Tab [Tylenol] 650 mg PO Q4HR PRN tab PRN Reason: Pain/Discomfort Discharge Medication List Acetaminophen Tab [Tylenol] 650 mg PO Q4HR PRN tab 07/01/21 [Rx] FLUoxetine HCL [PROzac] 60 mg PO DAILY 30 Days cap 07/01/21 [Rx] Mirtazapine [Remeron] 15 mg PO HS 30 Days tab 07/01/21 [Rx] Nicotine 14Mg/24Hr Patch [Habitrol] 1 patch TRANSDERM DAILY 14 Days patch 07/01/21 [Rx] QUEtiapine [SEROquel] 25 mg PO BID PRN 30 Days tab 07/01/21 [Rx] Follow up Appointment(s)/Referral(s): Bertram Lakeon [Other] - 07/04/21 2:30 pm (In person @ [facility] with [facility]a) Deanna Huston MD [Primary Care Provider] - 1-2 days Patient Instructions/Handouts: Depression (DC) Activity/Diet/Wound Care/Special Instructions: Activity and diet as tolerated. Avoid the use of street drugs and alcohol. Take all medications as prescribed. When you are in need of refills on your medications please contact your medical provider and/or outpatient psychiatrist to have this done. Please go to scheduled outpatient appointment for aftercare. If symptoms return or become worse call the crisis line at and/or go to the nearest emergency room for an evaluation. Discharge Disposition: HOME SELF-CARE
== END 2021-07-01 12:40 | disposition home or self-care (01) | DRG 885 ==
LOC: EC 21:49 → SUPCPDRO 21:49 → 3MHU 06-29 01:12
PROVIDERS: ADMIT Psychiatry & Neurology Psychiatry; ATTEND Psychiatry & Neurology Psychiatry
DX: F33.2 Major depressive disorder, recurrent severe without psychotic features (principal); R45.851 Suicidal ideations; F90.9 Attention-deficit hyperactivity disorder, unspecified type; F43.10 Post-traumatic stress disorder, unspecified; Z81.8 Family history of other mental and behavioral disorders; F17.210 Nicotine dependence, cigarettes, uncomplicated; F11.10 Opioid abuse, uncomplicated; F10.10 Alcohol abuse, uncomplicated; G47.00 Insomnia, unspecified; Z62.810 Personal history of physical and sexual abuse in childhood; Z91.5 Personal history of self-harm; Z79.899 Other long term (current) drug therapy
CPT/HCPCS: 80053; 80306; 81001; 81025; 82075; 83036; 84443; 85025; 99285

== ENCOUNTER 2021-07-08 10:49 | Emergency (ER) | payer OTHER ==
[2021-07-08] MEDS ORDERED: LORazepam 2 MG/ML INJ IV STA (11:11)
[2021-07-08] MEDS ORDERED: SODIUM CHLORIDE 0.9% 1,000 ML IV ONE (11:11)
--- NOTE | 2021-07-08 11:23 | ED ---
General Adult HPI - General Source: patient, EMS, RN notes reviewed, old records reviewed Mode of arrival: EMS Limitations: altered mental status <Gregory Painting - Last Filed: 07/08/21 15:02> <Gregory Fink - Last Filed: 07/09/21 10:45> - General Chief complaint: Altered Mental Status Stated complaint: Confusion Time Seen by Provider: 07/08/21 10:58 - History of Present Illness Initial comments: 36-year-old female presenting with agitation, confusion. According to EMS the patient had admitted to doing methamphetamine yesterday. She was seen at outside hospital and was either discharged or left AGAINST MEDICAL ADVICE. She is unable to give an accurate history. She is quite agitated upon arrival. (Gregory Painting) - Related Data Previous Rx's Medication Instructions Recorded Acetaminophen Tab [Tylenol] 650 mg PO Q4HR PRN tab 07/01/21 FLUoxetine HCL [PROzac] 60 mg PO DAILY 30 Days cap 07/01/21 Mirtazapine [Remeron] 15 mg PO HS 30 Days tab 07/01/21 Nicotine 14Mg/24Hr Patch [Habitrol] 1 patch TRANSDERM DAILY 14 Days 07/01/21 patch QUEtiapine [SEROquel] 25 mg PO BID PRN 30 Days tab 07/01/21 Allergies Allergy/AdvReac Type Severity Reaction Status Date / Time No Known Allergies Allergy Verified 07/08/21 12:00 Review of Systems ROS Other: All systems not noted in ROS Statement are negative. <Gregory Painting - Last Filed: 07/08/21 15:02> ROS Other: All systems not noted in ROS Statement are negative. <Gregory Fink - Last Filed: 07/09/21 10:45> ROS Statement: Those systems with pertinent positive or pertinent negative responses have been documented in the HPI. Past Medical History Past Medical History: No Reported History History of Any Multi-Drug Resistant Organisms: None Reported Additional Past Surgical History / Comment(s): LEEP procedure Past Anesthesia/Blood Transfusion Reactions: No Reported Reaction Past Psychological History: ADD/ADHD, Depression, PTSD Smoking Status: Current every day smoker Past Alcohol Use History: Occasional Past Drug Use History: Methamphetamine - Past Family History Mother Family Medical History: Cancer Family Family Medical History: No Reported History <Gregory Painting - Last Filed: 07/08/21 15:02> General Exam Limitations: altered mental status General appearance: appears intoxicated, anxious, in distress Head exam: Present: atraumatic, normocephalic Eye exam: Present: normal appearance, PERRL ENT exam: Present: mucous membranes dry Neck exam: Present: normal inspection. Absent: tenderness, meningismus Respiratory exam: Present: normal lung sounds bilaterally. Absent: respiratory distress, wheezes Cardiovascular Exam: Present: normal rhythm, tachycardia GI/Abdominal exam: Present: soft. Absent: distended, tenderness, guarding Extremities exam: Present: normal inspection Neurological exam: Present: alert, motor sensory deficit (Patient moving all extremities symmetrically, she has frequent uncontrolled movement of all limbs.). Absent: oriented X3 Psychiatric exam: Present: agitated, anxious Skin exam: Present: warm, dry, intact <Gregory Painting - Last Filed: 07/08/21 15:02> Course <Gregory Painting - Last Filed: 07/08/21 15:02> Vital Signs 07/08/21 07/08/21 07/08/21 10:57 11:04 12:04 Temperature 98.2 F Pulse Rate 106 H Respiratory 22 18 18 Rate Blood Pressure 127/95 O2 Sat by Pulse 99 Oximetry 07/08/21 07/08/21 07/08/21 13:04 14:00 15:00 Temperature Pulse Rate Respiratory 18 18 18 Rate Blood Pressure O2 Sat by Pulse Oximetry 07/08/21 07/08/21 07/08/21 16:00 17:00 18:00 Temperature Pulse Rate Respiratory 18 18 18 Rate Blood Pressure O2 Sat by Pulse Oximetry 07/08/21 07/08/21 07/08/21 19:00 19:15 20:54 Temperature Pulse Rate 74 80 Respiratory 18 15 18 Rate Blood Pressure 114/70 147/85 O2 Sat by Pulse 97 98 Oximetry 07/09/21 07/09/21 00:11 07:06 Temperature 97.8 F 98 F Pulse Rate 90 93 Respiratory 18 16 Rate Blood Pressure 134/68 110/47 O2 Sat by Pulse 97 100 Oximetry - Reevaluation(s) Reevaluation #1: 07/08/21 13:50 Patient will be evaluated by EPS. (Gregory Painting) Reevaluation #2: 07/08/21 1500 Patient has been petitioned. Patient care signed out at shift change to Dr. Myrick awaiting EPS evaluation. (Gregory Painting) Reevaluation #3: 07/08/21 15:02 I did complete a clinical certification on this patient. (Gregory Painting) EKG Findings - EKG Comments: EKG Findings:: EKG: Normal sinus rhythm, rightward axis, LVH, rate of 92 FL interval 118, QRS duration 92, QTC 482, no ST segment elevation. <Gregory Painting - Last Filed: 07/08/21 15:02> Medical Decision Making - Lab Data Result diagrams: 07/08/21 11:17 07/08/21 11:17 <Gregory Painting - Last Filed: 07/08/21 15:02> - Lab Data Result diagrams: 07/08/21 11:17 07/08/21 11:17 <Gregory Fink - Last Filed: 07/09/21 10:45> - Medical Decision Making The patient was evaluated by the EPS service and the psychiatrist this morning she currently is awake alert oriented 3 not wrist herself or anyone else she was negative started by the psychiatrist. Patient had been doing methamphetamine. She will be discharged (Gregory Fink) - Lab Data Lab Results 07/08/21 07/08/21 07/08/21 Range/Units 11:17 11:17 12:59 WBC 12.5 H (3.8-10.6) k/uL RBC 4.01 (3.80-5.40) m/uL Hgb 13.3 (11.4-16.0) gm/dL Hct 39.3 (34.0-46.0) % MCV 97.9 (80.0-100.0) fL MCH 33.2 (25.0-35.0) pg MCHC 33.9 (31.0-37.0) g/dL RDW 13.2 (11.5-15.5) % Plt Count 414 (150-450) k/uL MPV 7.0 Neutrophils % 65 % Lymphocytes % 24 % Monocytes % 6 % Eosinophils % 2 % Basophils % 1 % Neutrophils # 8.1 H (1.3-7.7) k/uL Lymphocytes # 3.0 (1.0-4.8) k/uL Monocytes # 0.8 (0-1.0) k/uL Eosinophils # 0.2 (0-0.7) k/uL Basophils # 0.1 (0-0.2) k/uL Sodium 139 (137-145) mmol/L Potassium 3.7 (3.5-5.1) mmol/L Chloride 107 (98-107) mmol/L Carbon Dioxide 21 L (22-30) mmol/L Anion Gap 11 mmol/L BUN 11 (7-17) mg/dL Creatinine 0.48 L (0.52-1.04) mg/dL Est GFR (CKD-EPI)AfAm >90 (>60 ml/min/1.73 sqM) Est GFR (CKD-EPI)NonAf >90 (>60 ml/min/1.73 sqM) Glucose 99 (74-99) mg/dL Calcium 9.3 (8.4-10.2) mg/dL Magnesium 1.7 (1.6-2.3) mg/dL Total Bilirubin 0.9 (0.2-1.3) mg/dL AST 31 (14-36) U/L ALT 16 (4-34) U/L Alkaline Phosphatase 75 (38-126) U/L Total Protein 7.4 (6.3-8.2) g/dL Albumin 4.4 (3.5-5.0) g/dL Urine Opiates Screen Detected H (NotDetected) Ur Oxycodone Screen Not Detected (NotDetected) Urine Methadone Screen Not Detected (NotDetected) Ur Propoxyphene Screen Not Detected (NotDetected) Ur Barbiturates Screen Not Detected (NotDetected) U Tricyclic Antidepress Not Detected (NotDetected) Ur Phencyclidine Scrn Not Detected (NotDetected) Ur Amphetamines Screen Detected H (NotDetected) U Methamphetamines Scrn Detected H (NotDetected) U Benzodiazepines Scrn Detected H (NotDetected) Urine Cocaine Screen Not Detected (NotDetected) U Marijuana (THC) Screen Not Detected (NotDetected) Serum Alcohol <10 mg/dL Disposition <Gregory Painting - Last Filed: 07/08/21 15:02> Is patient prescribed a controlled substance at d/c from ED?: No <Gregory Fink - Last Filed: 07/09/21 10:45> Clinical Impression: Methamphetamine abuse, Adjustment reaction Disposition: HOME SELF-CARE Condition: Good Instructions (If sedation given, give patient instructions): Methamphetamine Abuse (ED) Referrals: Deanna Huston MD [Primary Care Provider] - 1-2 days
[2021-07-08 11:32] LABS: Basophils # (A) 0.1 k/uL (0-0.2); Basophils % (A) 1 %; Eosinophils # (A) 0.2 k/uL (0-0.7); Eosinophils % (A) 2 %; HCT 39.3 % (34.0-46.0); HGB 13.3 gm/dL (11.4-16.0); Lymphocytes % (A) 24 %; MCH 33.2 pg (25.0-35.0); MCHC 33.9 g/dL (31.0-37.0); MCV 97.9 fL (80.0-100.0); Monocytes # (A) 0.8 k/uL (0-1.0); Monocytes % (A) 6 %; Neutrophils # (A) 8.1 k/uL (1.3-7.7); Neutrophils % (A) 65 %; Platelet Count 414 k/uL (150-450); RBC 4.01 m/uL (3.80-5.40); RDW 13.2 % (11.5-15.5); WBC 12.5 k/uL (3.8-10.6)
[2021-07-08 11:46] LABS: ALT 16 U/L (4-34); AST 31 U/L (14-36); African American GFR (CKD) >90 (>60 ml/min/1.73 sqM); Albumin 4.4 g/dL (3.5-5.0); Alcohol <10 mg/dL; Alkaline Phosphatase 75 U/L (38-126); Anion Gap 11 mmol/L; Blood Urea Nitrogen 11 mg/dL (7-17); Calcium 9.3 mg/dL (8.4-10.2); Carbon Dioxide 21 mmol/L (22-30); Chloride 107 mmol/L (98-107); Glucose 99 mg/dL (74-99); Magnesium 1.7 mg/dL (1.6-2.3); Non-African American GFR(CKD) >90 (>60 ml/min/1.73 sqM); Potassium 3.7 mmol/L (3.5-5.1); Sodium 139 mmol/L (137-145); Total Bilirubin 0.9 mg/dL (0.2-1.3); Total Protein 7.4 g/dL (6.3-8.2)
[2021-07-08 14:20] LABS: Amphetamine Screen,Urine Detected (NotDetected); Barbiturate Screen,Urine Not Detected (NotDetected); Benzodiazepines Screen,Urine Detected (NotDetected); Cocaine Screen,Urine Not Detected (NotDetected); Methadone Screen, Urine Not Detected (NotDetected); Opiate Screen,Urine Detected (NotDetected); Oxycodone Screen, Urine Not Detected (NotDetected); Phencyclidine Screen,Urine Not Detected (NotDetected); Tricyclic Antidepressant,Urine Not Detected (NotDetected); Urn Cannabinoid Scrn Not Detected (NotDetected)
[2021-07-08] MEDS ORDERED: LORazepam 2 MG/ML INJ IM STA (14:52)
[2021-07-09] MEDS ORDERED: IBUPROFEN 600 MG TAB PO STA (00:59)
[2021-07-09] MEDS ORDERED: LORazepam 2 MG/ML INJ IV STA (00:59)
[2021-07-09 11:19] VITALS: BP 135/76; PULSE 83; RESP 18; TEMP 98
== END 2021-07-09 11:15 | disposition home or self-care (01) ==
LOC: EC 10:49
DX: R41.82 Altered mental status, unspecified (principal); R00.0 Tachycardia, unspecified; F15.10 Other stimulant abuse, uncomplicated; F43.20 Adjustment disorder, unspecified; F17.200 Nicotine dependence, unspecified, uncomplicated
CPT/HCPCS: 36415; 93005; 80053; 83735; 85025; 80306; 99285; 96374; 96376; 96372; 96361; G0480; J2060 ×2; 80320

== ENCOUNTER 2021-10-08 11:09 | Inpatient (IN) | payer MEDICAID ==
[2021-10-08] MEDS ORDERED: LORazepam 1 MG TAB PO PRN (11:26)
[2021-10-08] MEDS ORDERED: MAG HYDROX/AL HYDROX/SIMETH 30 ML CUP PO PRN (11:26)
[2021-10-08] MEDS ORDERED: MAGNESIUM HYDROXIDE 2,400 MG/10 ML CUP PO PRN (11:26)
[2021-10-08] MEDS ORDERED: HALOPERIDOL LACTATE 5 MG/ML 1 ML VIAL IM PRN (11:30)
[2021-10-08] MEDS ORDERED: haloperidoL 5 MG TAB PO PRN (11:30)
[2021-10-08] MEDS ORDERED: LORazepam 2 MG/ML INJ IV PRN (11:30)
[2021-10-08] MEDS ORDERED: QUEtiapine 25 MG TAB PO PRN (14:10)
[2021-10-08] MEDS ORDERED: INFLUENZA VACC (6 MOS-64 YRS) 60 MCG/0.5 ML SYRINGE IM ONE (14:15)
[2021-10-08] MEDS: ACETAMINOPHEN TAB 325 MG TAB PO PRN ×2 (14:46→18:40)
[2021-10-08] MEDS: NICOTINE 14MG/24HR PATCH TRANSDERM SCH (17:38)
[2021-10-08] MEDS: MIRTAZAPINE 15 MG TAB PO SCH (20:35)
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
[2021-10-09] MEDS: NICOTINE 14MG/24HR PATCH TRANSDERM SCH (08:29)
[2021-10-09] MEDS: FLUoxetine HCL 20 MG CAP PO SCH (08:29)
[2021-10-09] MEDS: ACETAMINOPHEN TAB 325 MG TAB PO PRN ×4 (08:29→20:48)
[2021-10-09] MEDS: MULTIVITAMINS, THERA 1 EACH TAB PO SCH (08:29)
[2021-10-09] MEDS ORDERED: LORazepam 2 MG/ML INJ IM PRN (10:13)
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
[2021-10-09] MEDS ORDERED: LORazepam 0.5 MG TAB PO PRN (10:17)
[2021-10-09 19:17] LABS: Chol/HDL Ratio 5.81 Ratio; LDL Cholesterol,Calculated 124.8 mg/dL (0.0-131.0)
[2021-10-09] MEDS: MIRTAZAPINE 15 MG TAB PO SCH (20:47)
[2021-10-09] MEDS: QUEtiapine 25 MG TAB PO SCH (20:47)
[2021-10-10] MEDS: ACETAMINOPHEN TAB 325 MG TAB PO PRN ×2 (08:12→17:39)
[2021-10-10] MEDS: FLUoxetine HCL 20 MG CAP PO SCH (08:14)
[2021-10-10] MEDS: MULTIVITAMINS, THERA 1 EACH TAB PO SCH (08:15)
[2021-10-10] MEDS: NICOTINE 14MG/24HR PATCH TRANSDERM SCH (08:15)
--- NOTE | 2021-10-10 10:57 | P.PN ---
Progress Note - Text Progress Note Date: 10/10/21 Interval History: Patient was seen wandering the hallways and was directable and agreeable to abner garcia with advertising copywriter in the office. Patient appears to have mild improvement in her hygiene and grooming today. She states that she is doing mildly better today however continues to claim that she does have anxiety and some depression. She states that her suicidal thoughts have been gradually getting better. She claims that she spoke with her fianc over the phone and states that things went a bit better however states that she does not feel safe to go home. She states that she is attempting to go to group and participate his best she can. She is not reporting any side effects at this time. She claims that her appetite is fair. She states that she is able to sleep a bit better last night. At this time patient denies any suicidal or homical ideations, intent or plan. Patient denies any auditory, visual hallucinations and denies any paranoia or delusions. Patient denies any side effects from the medications and has been compliant with meds. Mental Status Exam: General Appearance: Patient appears to be short in stature, stated age is alert, directable, and attempts to cooperate. Dreadlocks, dyed hair color pink Patient appears to have improving hygiene and grooming. Behavior: Patient is seated without any agitated behavior. Speech: Patient's speech is fluent and nonpressured. Mood/Affect: Patient reports their mood is depressed and anxious, improving mildly, affect is congruent and constricted Suicidality/Homicidality: Patient denies having any suicidal or homicidal ideation intent or plan. Perceptions: Patient denies any visual hallucinations and denies any auditory hallucinations Though content/process: There is no evidence of any delusional thought content and thought process is linear and goal-directed. focused on her stressors Memory and concentration: AOX3, grossly intact for the purposes of this session. Judgment and insight: poor, improving mildly IMPRESSIONS: Major depressive disorder recurrent severe without psychotic features Anxiety disorder, unspecified opioid abuse nicotine dependence Plan: -Patient continues to meet criteria for inpatient psychiatric admission for symptom stabilization and safety. Patient has signed adult voluntary form and medication consent and was placed in patient's chart. -Medications: increased Prozac 60 mg daily, Remeron 15 mg nightly for insomnia/mood/appetite. seroquel 25 mg qhs for mood adjunct/stabilization. vistaril 25 mg q6hr prn for anxiety. -When necessary Ativan and Haldol for agitation/aggression. -NRT - nicotine patch -SW on board for discharge planning. Encouraged the patient to participate in milieu. Discharge set for wednesday back home.
[2021-10-10] MEDS: IBUPROFEN 600 MG TAB PO PRN ×2 (12:59→20:32)
[2021-10-10] MEDS: MIRTAZAPINE 15 MG TAB PO SCH (20:31)
[2021-10-10] MEDS: QUEtiapine 25 MG TAB PO SCH (20:31)
[2021-10-11 06:57] VITALS: RESP 18
[2021-10-11] MEDS: MULTIVITAMINS, THERA 1 EACH TAB PO SCH (08:24)
[2021-10-11] MEDS: FLUoxetine HCL 20 MG CAP PO SCH (08:24)
[2021-10-11] MEDS: ACETAMINOPHEN TAB 325 MG TAB PO PRN ×3 (08:24→17:47)
[2021-10-11] MEDS: NICOTINE 14MG/24HR PATCH TRANSDERM SCH (08:29)
[2021-10-11] MEDS: hydrOXYzine pamoate 25 MG CAP PO PRN (11:35)
[2021-10-11] MEDS: IBUPROFEN 600 MG TAB PO PRN ×2 (11:36→20:10)
[2021-10-11] MEDS ORDERED: FLUoxetine HCL 20 MG CAP PO ONE (15:30)
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
[2021-10-11] MEDS: MIRTAZAPINE 15 MG TAB PO SCH (20:11)
[2021-10-11] MEDS: QUEtiapine 25 MG TAB PO SCH (20:11)
[2021-10-12] MEDS: ACETAMINOPHEN TAB 325 MG TAB PO PRN ×3 (02:03→16:29)
[2021-10-12] MEDS: IBUPROFEN 600 MG TAB PO PRN ×2 (08:23→18:28)
[2021-10-12] MEDS: FLUoxetine HCL 20 MG CAP PO SCH (08:24)
[2021-10-12] MEDS: MULTIVITAMINS, THERA 1 EACH TAB PO SCH (08:24)
[2021-10-12] MEDS: NICOTINE 14MG/24HR PATCH TRANSDERM SCH (11:00)
[2021-10-12] MEDS: hydrOXYzine pamoate 25 MG CAP PO PRN ×2 (12:15→18:27)
--- NOTE | 2021-10-12 12:30 | PN ---
PROGRESS NOTE DATE OF SERVICE: 10/12/2021. CHIEF COMPLAINT: The patient was depressed and had made a suicide attempt by overdosing on 7 to 8 pills of Seroquel and Remeron. She had multiple abusive substances in her system. INTERVAL HISTORY: Patient has been doing fair. She was out on the unit yesterday. She seems to interact well with others. She has been cooperative with care. She attends groups. It is noted that she finds them quite helpful for her. She said she slept fairly well last night. Today she has been up and seems to be active on the unit. She attended group today. She said that she is quite positive about the plan of a family meeting with her fiance tomorrow, which will be at noon. She notes that he has PTSD issues from experience though has not been willing to put much energy into addressing those issues. She is hopeful to get him involved in either individual or couples therapy. It is noted that she has been on Prozac 60 mg a day, though also alcohol has been in the picture, which likely has blocked much benefit she might get from an antidepressant. She reports that at present she is now free of alcohol since June 28 other than one- time use on the day prior to admission. Her urine drug screen was positive on July 08 for opioids, amphetamines, methamphetamines and benzodiazepines. She indicated on this admission that she has been clean from abusive substances since then. She tolerates her psychotropic medications. MENTAL STATUS: Patient sat with some restlessness. She gave fairly good eye contact. She answered questions appropriately. Her thoughts were clear and coherent. Her affect was somewhat constricted, though not to a significant degree. Her mood was reserved, though not down or depressed. She did not appear to be distressed. There was no indication of thought disorder. She voiced no thoughts of harm. Cognition was clear. ASSESSMENT: I will continue the current diagnosis and treatment plan. I will continue psychotropic medications the same. We had an extensive discussion in regards to how abusive substances come into the picture and make treatment much more complicated until the effects are well out of the brain, which typically takes months. I would anticipate that she would begin to get some benefit from antidepressant therapy over the next 4 to 6 weeks, though she may not get a lot of benefit at present in spite of her having been on an assertive dose of Prozac over a number of months. We will set up the family meeting for tomorrow. We will focus on stabilization and discharge planning. MMODL / IJN: [id number] /
[2021-10-12] MEDS: QUEtiapine 25 MG TAB PO SCH (20:10)
[2021-10-12] MEDS: MIRTAZAPINE 15 MG TAB PO SCH (20:10)
[2021-10-13 06:45] VITALS: BP 115/74; PULSE 104; TEMP 98
[2021-10-13] MEDS: NICOTINE 14MG/24HR PATCH TRANSDERM SCH (08:34)
[2021-10-13] MEDS: FLUoxetine HCL 20 MG CAP PO SCH (08:34)
[2021-10-13] MEDS: MULTIVITAMINS, THERA 1 EACH TAB PO SCH (08:34)
[2021-10-13] MEDS: ACETAMINOPHEN TAB 325 MG TAB PO PRN (08:34)
[2021-10-13] MEDS: hydrOXYzine pamoate 25 MG CAP PO PRN (10:21)
[2021-10-13] MEDS: IBUPROFEN 600 MG TAB PO PRN (12:56)
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
== END 2021-10-13 16:05 | disposition home or self-care (01) | DRG 885 ==
LOC: 3MHU 12:21
PROVIDERS: ADMIT Psychiatry & Neurology Psychiatry; ATTEND Psychiatry & Neurology Psychiatry
DX: F33.2 Major depressive disorder, recurrent severe without psychotic features (principal); F19.20 Other psychoactive substance dependence, uncomplicated; F11.10 Opioid abuse, uncomplicated; T43.592A Poisoning by other antipsychotics and neuroleptics, intentional self-harm, initial encounter; T43.022A Poisoning by tetracyclic antidepressants, intentional self-harm, initial encounter; F90.9 Attention-deficit hyperactivity disorder, unspecified type; F41.9 Anxiety disorder, unspecified; G47.00 Insomnia, unspecified; F17.210 Nicotine dependence, cigarettes, uncomplicated; Z71.6 Tobacco abuse counseling; Z79.899 Other long term (current) drug therapy; Z71.51 Drug abuse counseling and surveillance of drug abuser; Z62.810 Personal history of physical and sexual abuse in childhood; Z56.0 Unemployment, unspecified; Z91.51 Personal history of suicidal behavior; Z65.3 Problems related to other legal circumstances; Z98.51 Tubal ligation status; Z87.42 Personal history of other diseases of the female genital tract; Z98.890 Other specified postprocedural states; Z81.8 Family history of other mental and behavioral disorders; Z82.49 Family history of ischemic heart disease and other diseases of the circulatory system; Z80.9 Family history of malignant neoplasm, unspecified
CPT/HCPCS: 80061; 83036; 84443; 90686

== ENCOUNTER 2022-01-11 21:14 | Emergency (ER) | payer OTHER ==
[2022-01-11 21:27] VITALS: BP 145/96; PULSE 130; RESP 22; TEMP 98.1
[2022-01-11] MEDS ORDERED: TOPICAL SKIN ADHESIVE 1 EACH AMP TOPICAL ONE (21:41)
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
== END 2022-01-11 22:07 | disposition home or self-care (01) ==
LOC: EC 21:14
DX: S01.81XA Laceration without foreign body of other part of head, initial encounter (principal); F17.200 Nicotine dependence, unspecified, uncomplicated; Y04.8XXA Assault by other bodily force, initial encounter
CPT/HCPCS: 99284